=== PATIENT | male | born 1960 | race Caucasian/White ===

== ENCOUNTER 2017-12-19 10:17 | Emergency (ER) | payer MEDICARE, OTHER ==
[~2017-12-19] VITALS: Ht 157.5 cm; Wt 67.1 kg
[2017-12-19 10:17] VITALS: BP_SYST 105
--- NOTE | 2017-12-19 10:17 | NUR ---
[facility] from home.
--- NOTE | 2017-12-19 10:19 | NUR ---
Dr. Martinez at bedside for evaluation
[2017-12-19] MEDS ORDERED: NACL 0.9% 1,000 ML IV ONE (10:22)
--- NOTE | 2017-12-19 10:25 | NUR ---
Pt presents to ER c/o nausea, vomiting, general weakness, mild abdominal pain 5/10 on pain scale, headache. Pt denies chest pain, sob, fever. Pt AOX4, speaking ful sentences, no signs of acute distress.
[2017-12-19] MEDS ORDERED: ONDANSETRON HCL 4 MG/2 ML VIAL IVP ONE (10:30)
--- NOTE | 2017-12-19 10:35 | NUR ---
# 20 gauge angiocath placed to LAC. Use of asceptic technique. Opsite placed over site. Blood return noted. Blood for lab drawn from site. Flushed with 10 cc of normal saline. No evidence of infiltration noted. Patient tolerated well.
[2017-12-19 10:40] LABS: LYMPHOCYTES # (AUTO) 0.9 K/uL (1.0-5.5); MEAN CORPUSCULAR HEMOGLOBIN 32 pg (27-31); MONOCYTES # (AUTO) 0.5 K/uL (0.0-1.0); NEUTROPHILS # (AUTO) 1.9 K/uL (1.8-7.7); WHITE BLOOD COUNT (AUTO) 3.3 K/uL (4.8-10.8)
[2017-12-19 10:46] LABS: BASOPHILS % (AUTO) 0.7 % (0.0-2.0); EOSINOPHILS % (AUTO) 0.1 % (0.0-4.0); HEMATOCRIT 32.4 % (36-54); LYMPHOCYTES % (AUTO) 27.8 % (20.5-51.5); MEAN CORPUSCULAR HGB CONC 34 % (32-36); MEAN CORPUSCULAR VOLUME 93 fL (79.0-98.0); NEUTROPHILS % (AUTO) 56.4 % (40.0-70.0); RED BLOOD CELL COUNT(AUTO) 3.47 MIL/uL (4.2-6.2); RED CELL DISTRIBUTION WIDTH 16.2 % (9.0-15.0)
--- NOTE | 2017-12-19 10:46 | NUR ---
Pt medicated and tolerated well; will continue to monitor.
[2017-12-19] MEDS ORDERED: HYT1 PO (10:55)
[2017-12-19] MEDS ORDERED: LEVE500T13 PO (10:55)
[2017-12-19] MEDS ORDERED: CYCL-10 PO (10:55)
[2017-12-19] MEDS ORDERED: SERT-131 PO (10:55)
[2017-12-19] MEDS ORDERED: FAMO40TA7 PO (10:55)
[2017-12-19] MEDS ORDERED: SIMV20TA2 PO (10:55)
[2017-12-19] MEDS ORDERED: RISP2TAB5 PO (10:55)
[2017-12-19] MEDS ORDERED: LISI10TA5 PO (10:55)
[2017-12-19] MEDS ORDERED: OXYB10TA4 PO (10:55)
[2017-12-19] MEDS ORDERED: TRAM50TA92 PO (10:55)
[2017-12-19] MEDS ORDERED: ALEN70TA3 PO (10:55)
[2017-12-19] MEDS ORDERED: NAPR-688 PO (10:55)
--- NOTE | 2017-12-19 10:55 | NUR ---
# 16 FR In and Out catheter with use of sterile technique. Immediate return of 100 ml dark yellow urine noted. Urine sample collected and sent to lab. Pt tolerated procedure well.
[2017-12-19 11:08] LABS: CALCIUM 8.7 mg/dL (8.4-11.0); CREATININE 0.57 mg/dL (0.55-1.30); POTASSIUM 3.5 mmol/L (3.5-5.1)
[2017-12-19 11:14] LABS: ALBUMIN 2.2 g/dL (3.4-4.8); TOTAL BILIRUBIN 0.3 mg/dL (0.0-1.0)
[2017-12-19 11:19] LABS: PLATELET COUNT (AUTO) 214 K/uL (130-430)
[2017-12-19 11:28] LABS: BILIRUBIN,URINE 2+ (NEGATIVE); BLOOD, URINE NEGATIVE (NEGATIVE); CLARITY/URINE CLEAR (CLEAR); COLOR,URINE AMBER (YELLOW); GLUCOSE,URINE NEGATIVE (NEGATIVE); KETONES,URINE 3+ (NEGATIVE); LEUKOCYTE ESTERASE ,URINE NEGATIVE (NEGATIVE); NITRITE, URINE NEGATIVE (NEGATIVE); PROTEIN URINE TRACE (NEGATIVE); UROBILINOGEN,URINE 0.2 (0.2-1.0)
--- NOTE | 2017-12-19 11:34 | NUR ---
receive report from MEHRAN Dwyer; pt resting comfortably in bed in stable condition; will continue to monitor
--- NOTE | 2017-12-19 11:37 | NUR ---
VSS 98/61 P98 R18 99%RA; pt resting comfortably in bed; NS hydration infusing; (Nathalie) at bedside; will continue to monitor
[2017-12-19 11:42] LABS: BACTERIA,URINE FEW /HPF (None Seen); MUCUS,URINE 1+ /LPF (None Seen); RBC,URINE 0-3 /HPF (0-3); WBC,URINE 0-3 /HPF (0-3)
--- NOTE | 2017-12-19 12:31 | NUR ---
Pt resting comfortably on gurney, no acute distress noted, VSS and charted, spouse at bedside, will continue to monitor.
[2017-12-19 13:58] VITALS: BP_SYST 106
--- NOTE | 2017-12-19 13:58 | NUR ---
Patient to be transferred to [facility]. Is being transferred due to higher level of care. Receiving facility has accepting physician and available space. ER physician has signed transfer form. Patient or responsible constitution party has agreed to transfer and signed form. Patient belongings inventoried and will be sent with patient. Copy of nursing notes, lab reports, EKG, Physicians Orders and X-rays to be sent with patient. Report called to Xuan LAURENT at receiving facility. Receiving physician is Dr. Jennings. [facility] ambulance service has been called for transfer. ETA is [id number].
--- NOTE | 2017-12-19 13:58 | NUR ---
Report given to Xuan LAURENT at [facility].
== END 2017-12-19 13:58 | disposition home or self-care (01) ==
LOC: SED 10:17
DX: K52.9 Noninfective gastroenteritis and colitis, unspecified (principal); E86.0 Dehydration; G80.9 Cerebral palsy, unspecified; I10 Essential (primary) hypertension; J45.909 Unspecified asthma, uncomplicated
CPT/HCPCS: 36415; 80053; 81000; 83690; 85025; 93005; 96361; 96374; 99285; J2405; J7030